=== PATIENT | female | born 2000 | race Caucasian/White ===

== ENCOUNTER 2021-06-12 08:05 | Emergency (ER) | payer MEDICAID, SELFPAY ==
[2021-06-12 08:06] VITALS: BP 154/90; PULSE 104; RESP 18; TEMP 36; O2SAT 98; BMI 47.3
--- NOTE | 2021-06-12 09:21 | EDS_ITS ---
HPI History of Present Illness Chief Complaint: Cold Sx Informant: patient Narrative Narrative: 20-year-old female arriving to the emergency department out of concerns for COVID-19. Patient states that her significant other has had Covid. She notes that yesterday she developed a cough and noticed changes in smell. Patient states today she could not smell really much at all. She denies any significant shortness of breath. No fevers. She has a history of asthma. [facility] Medical History (Updated 06/12/21 @ 09:[address] Roberto Dowell DO) Asthma Home Medications desogestrel-ethinyl estradiol [Juleber] 1 tab PO DAILY 06/12/21 [History Last Taken 06/11/21] Social History (Updated 06/12/21 @ 09:[address] Roberto Dowell DO) Smoking Status: Current every day smoker tobacco type: cigarettes substance use type: does not use ROS ROS ED Constitutional Constitutional ED: Denies chills, fever(s) or weight loss Eyes Eyes: Denies change in vision or diplopia ENT ENT ED: Reports other Details: Change in smell ; Denies ear pain, rhinorrhea or sore throat Cardiovascular Cardiovascular: Denies chest pain, orthopnea, palpitations or racing heartbeat Respiratory/Chest Respiratory/Chest: Reports cough; Denies dyspnea or orthopnea Gastrointestinal Gastrointestinal: Denies abdominal pain, diarrhea, nausea or vomiting Genitourinary Genitourinary ED: Denies dysuria, hematuria or urinary frequency Musculoskeletal Musculoskeletal: Denies arthralgias or myalgias Integumentary Denies abscess or rash Neurologic Neurologic: Denies headache(s) or weakness Psychiatric Psychiatric: Denies anxiety, depression, suicidal ideation or suicidal thoughts Endocrine Endocrinology: Denies polydipsia, polyphagia or polyuria Allergic/Immunologic Allergic/Immunologic ED: Denies mouth swelling, tongue swelling or urticaria EXAM Physical Exam Const Vital Signs: 06/12/21 08:06 Temperature 96.8 F L Temperature Source Temporal Pulse Rate 104 H Respiratory Rate 18 Blood Pressure 154/90 H Blood Pressure Mean 111 Pulse Ox 98 Oxygen Delivery Method Room Air Positive well nourished, well developed and obese General Appearance ED: well developed Nutritional Appearance: obese HEENT Reports normocephalic, head/scalp atraumatic, TM's clear and moist mucous membranes Negative for trauma Tympanic Membrane ED: Yes TM's clear Eyes PERRL and EOMs intact bilaterally Neck no lymphadenopathy, supple and no JVD Resp normal respiratory effort and clear to auscultation bilaterally Cardio regular rate, regular rhythm and no murmurs GI normal to inspection, nondistended, normoactive bowel sounds and non-tender Palpation: soft Back/Spine no CVA tenderness and normal ROM Extremity normal to inspection General Extremety ED: Negative for edema General Extremity: Negative for edema Neuro oriented x3 and CN's II-XII intact bilaterally Sensorium / Orientation: alert Motor Exam: strength 5/5 throughout Psych mental status grossly normal Mood & Affect: Negative for depressed or tearful Skin no rashes or lesions noted and no wounds MDM MDM MDM Narrative Medical decision making narrative: Patient's Covid test is positive. She is 98% on room air and is having no breathing difficulties. I believe she would qualify for monoclonal antibodies and I will put that referral in. She is to self quarantine return if worsening or concerns Discharge Plan Triage Chief Complaint: Cold Sx ED Provider: Roberto Dowell Dx/Rx/DC Orders Clinical Impression: COVID-19 Instructions: Coronavirus Disease 2019 (COVID-19): Caring for Yourself or Others Prescriptions: No Action desogestrel-ethinyl estradiol [Dmitriyeber] 0.15-0.03 mg tablet 1 tab PO DAILY RF: 0 Other Ambulatory Orders: COVID Outpatient Monoclonal Antibody Referral (Routine) Timeframe: 1 Day Facility: [facility] - Location: [facility] Ordered By: Dr. Roberto Dowell Primary Care Provider: Care Physician,No Primary Referrals: Care Physician,No Primary [Primary Care Provider] - Disposition Disposition: Home, Self Care
[2021-06-12 09:34] VITALS: BP 152/86; PULSE 80; RESP 18; O2SAT 96
== END 2021-06-12 09:35 | disposition home or self-care (01) ==
PROVIDERS: Emergency Provider Emergency Medicine
DX: U07.1 COVID-19 (principal); J45.909 Unspecified asthma, uncomplicated; F17.210 Nicotine dependence, cigarettes, uncomplicated; E66.9 Obesity, unspecified
CPT/HCPCS: 87426; 99282

== ENCOUNTER 2021-06-13 11:22 | Outpatient (CLI) | payer MEDICAID, SELFPAY ==
[2021-06-13 11:32] VITALS: BP 138/78; PULSE 101; RESP 16; TEMP 36.9; O2SAT 99; BMI 48.1
[2021-06-13] MEDS: 0.9% Saline Lock 10 ML Syringe IV (11:38)
[2021-06-13 12:35] VITALS: BP 115/64; PULSE 85; RESP 16; TEMP 36.6; O2SAT 100
[2021-06-13 13:35] VITALS: BP 109/60; PULSE 80; RESP 16; TEMP 36.7; O2SAT 99
== END 2021-06-13 13:35 | disposition home or self-care (01) ==
LOC: MS3OUT 11:22 → MS3 11:23
PROVIDERS: Referring Provider Nurse Practitioner Adult Health; Visit Provider Nurse Practitioner Adult Health
DX: Z23 Encounter for immunization (principal); U07.1 COVID-19
CPT/HCPCS: J7050; M0243; A4216; Q0244

== ENCOUNTER 2021-08-23 19:52 | Emergency (ER) | payer MEDICAID, SELFPAY ==
[2021-08-23 19:53] VITALS: BP 129/77; PULSE 98; RESP 15; TEMP 35.9; O2SAT 100; BMI 48.4
[2021-08-23 20:27] VITALS: O2SAT 97
--- NOTE | 2021-08-23 20:38 | EDS_ITS ---
HPI HPI - URI History of Present Illness Chief Complaint: Cold Sx Narrative Narrative: 20-year-old female presenting for evaluation of a cough. She states she had Covid a month ago and recovered. She now has some mild runny nose and congestion and also states she is coughing a little bit. She has no fever, chills. She has some mild fatigue. She is not having chest pain. She not short of breath. She has no nausea or vomiting. She does not have a headache. ROS ROS ED Constitutional Constitutional ED: Denies chills, fever(s) or sweats Eyes Eyes: Denies blurry vision or change in vision ENT ENT ED: Reports rhinorrhea; Denies ear pain or sore throat Cardiovascular Cardiovascular: Denies chest pain, palpitations or racing heartbeat Respiratory/Chest Respiratory/Chest: Reports cough; Denies dyspnea or sputum Gastrointestinal Gastrointestinal: Denies abdominal pain, constipation, diarrhea, nausea or vo miting Genitourinary Genitourinary ED: Denies dysuria, hematuria or urinary frequency Musculoskeletal Musculoskeletal: Denies arthralgias, myalgias or neck pain Integumentary Denies abscess, Abrasions or rash Neurologic Neurologic: Denies headache(s), paresthesias or weakness Psychiatric Psychiatric: Denies anxiety, depression, suicidal ideation or suicidal thoughts Endocrine Endocrinology: Denies polydipsia or polyuria [facility] Medical History Asthma Home Medications desogestrel-ethinyl estradiol [Juleber] 1 tab PO DAILY 06/12/21 [History Last Taken 06/11/21] promethazine-DM 5 ml PO Q6H PRN #118 ml 08/23/21 [Rx Last Taken Unknown] Allergy/AdvReac Type Severity Reaction Status Date / Time No Known Allergies Allergy Verified 08/23/21 19:53 Social History Smoking Status: Current every day smoker tobacco type: cigarettes substance use type: does not use EXAM Physical Exam Const Vital Signs: 08/23/21 19:53 08/23/21 20:27 Temperature 96.6 F L Temperature Source Temporal Pulse Rate 98 Respiratory Rate 15 Respiratory Effort Normal Non-Labored Respiratory Depth Normal Respiratory Pattern Normal Blood Pressure 129/77 H Blood Pressure Mean 94 Pulse Ox 100 Oxygen Delivery Method Room Air Room Air Positive well nourished General Appearance ED: NAD; Negative for pallor HEENT Reports normocephalic, head/scalp atraumatic and moist mucous membranes Face and Sinus: Negative for sinus tenderness Eyes PERRL and EOMs intact bilaterally Neck No no lymphadenopathy and No supple Chest Wall inspection of chest normal and palpation of chest normal Resp normal respiratory effort and clear to auscultation bilaterally Auscultation: Negative for rales, rhonchi or wheezes Cardio regular rate and regular rhythm GI normal to inspection, nondistended, normoactive bowel sounds and non-distended Auscultation: normoactive bowel sounds Palpation: soft Narrative: Deferred Extremity Negative for normal to inspection General Extremety ED: Yes edema; Negative for tenderness General Extremity: edema Neuro oriented x3 and CN's II-XII intact bilaterally Sensorium / Orientation: alert Motor Exam: strength 5/5 throughout Psych mental status grossly normal Attitude: No agitated Skin no rashes or lesions noted and no wounds General Skin Exam: Negative for jaundice or pallor MDM MDM MDM Narrative Medical decision making narrative: Patient with mild cough. Lungs are clear to auscultation. Respiratory rate 15, pulse ox 100% on room air. Patient has mild symptoms of nasal congestion and a slight cough. She is already had COVID-19 and had all treatments for it. This was about a month and a half ago. Based on patient's physical exam and vital signs I do not believe she needs another work- up or imaging. I will give her something to help her with her cough and have her follow-up with her primary care provider. Impression: 1. URI likely viral Discharge Plan Triage Chief Complaint: Cold Sx ED Provider: Jose G Abebe Dx/Rx/DC Orders Instructions: ED Viral Syndrome (Adult) Prescriptions: New promethazine-DM 6.25-15 mg/5 mL syrup 5 ml PO Q6H PRN (Reason: cough) Qty: 118 RF: 0 No Action desogestrel-ethinyl estradiol [Dmitriyeber] 0.15-0.03 mg tablet 1 tab PO DAILY RF: 0 Primary Care Provider: Adelfo Villanueva Referrals: Adelfo Villanueva MD [Primary Care Provider] - Disposition Disposition: Home, Self Care Discharge Date/Time: 08/23/21 20:45
[2021-08-23] MEDS: Benzonatate 100 MG Capsule 200 MG PO (20:43)
== END 2021-08-23 20:45 | disposition home or self-care (01) ==
PROVIDERS: Emergency Provider Student in an Organized Health Care Education/Training Program; PCP Internal Medicine
DX: J06.9 Acute upper respiratory infection, unspecified (principal); F17.210 Nicotine dependence, cigarettes, uncomplicated; Z86.16 Personal history of COVID-19; J45.909 Unspecified asthma, uncomplicated; Z79.899 Other long term (current) drug therapy
CPT/HCPCS: 99284

== ENCOUNTER 2021-10-28 11:19 | Emergency (ER) | payer MEDICAID, SELFPAY ==
[2021-10-28 11:20] VITALS: BP 146/82; PULSE 77; RESP 16; TEMP 36; O2SAT 99; BMI 45.1
--- NOTE | 2021-10-28 12:17 | EKG12_ITS ---
Test Reason : DYSRYTHMIA Blood Pressure : / mmHG Vent. Rate : 067 BPM Atrial Rate : 067 BPM P-R Int : 118 ms QRS Dur : 094 ms QT Int : 410 ms P-R-T Axes : 006 -12 002 degrees QTc Int : 433 ms Normal sinus rhythm with sinus arrhythmia Normal ECG Confirmed by KARYNA RAINES, JULIA ([id number]), script editor HAROLDO FALCON ([id number]) on 10/30/2021 8:32:50 AM Referred By: JESSEE Confirmed By:JULIA TRONCOSO MD
--- NOTE | 2021-10-28 12:17 | EDS_ITS ---
HPI HPI - Psych History of Present Illness Chief Complaint: Suicidal Narrative Narrative: Patient with past medical history of depression/anxiety, not on medication presents with her mother because of increasing suicidal ideation. She states that she would take any sort of prescription medication in an attempt to kill herself. She has never been previously hospitalized for psychiatric reasons. Over the last week she states she has been having increasing thoughts of killing herself. Her mother feels that it stems from the patient recently coming out as bisexual. Her father's mother/her grandmother helped raise her, but was unaccepting of her bisexuality. Patient denies previous attempts. She states she has a normal appetite, but endorses insomnia. She does not have full anhedonia as of yet. 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 [facility] Medical History Asthma PTSD (post-traumatic stress disorder) Home Medications NK 10/28/21 [History Last Taken Unknown] Allergy/AdvReac Type Severity Reaction Status Date / Time No Known Allergies Allergy Verified 10/28/21 11:22 Social History Smoking Status: Current every day smoker tobacco type: e-cigarettes substance use type: does not use ROS ROS ED ROS Narrative Constitutional: No fever, no chills. HEENT: No sore throat. No neck pain. No loss of vision. No rhinorrhea. Cardiovascular: No chest pain. No palpitations. No pedal edema. Respiratory: No cough, no shortness of breath. Abdominal: No abdominal pain. No nausea. No vomiting. Genitourinary: No dysuria. No hematuria. Musculoskeletal: No myalgias. No arthralgias. Neurologic: No headaches. No dizziness. No lightheadedness. Skin: No rash. No change in color. Psychiatric: Positive depression. Mild anxiety. Positive suicidal ideation and thoughts with plan of overdose on prescription medication. EXAM Physical Exam Narrative Exam Narrative: Afebrile. Vital signs noted. HEENT: Normocephalic. Atraumatic. PERRL, EOMI. Neck soft and supple. No point tenderness or step off. Cardiovascular: Regular rate and rhythm. No murmurs, rubs, or gallops appreciated. Respiratory: No tachypnea. Lungs clear to auscultation bilaterally. Gastrointestinal: Abdomen soft, nontender, with normoactive bowel sounds. No rebound or guarding. Neurological: Awake. Alert. Nonfocal, nonlateralizing. Skin: No rash. Normal color. No pallor. Musculoskeletal: No pedal edema. Full range of motion extremities. Psychiatric: Depressed affect. Tearful on examination. Const Vital Signs: 10/28/21 11:20 10/28/21 12:33 10/28/21 13:11 Temperature 96.8 F L Temperature Source Temporal Pulse Rate 77 Respiratory Rate 16 16 16 Blood Pressure 146/82 H Blood Pressure Mean 103 Pulse Ox 99 Oxygen Delivery Method Room Air MDM MDM MDM Narrative Medical decision making narrative: Medical screening labs were obtained. She will be evaluated by case management. I do feel that she requires emergent psychiatric admission. They are requesting [facility] as mother states that she is familiar with this because one of the patient's siblings had to be taken there. Her medical screening labs are grossly unremarkable except hemoglobin slightly elevated at 16.4. Electrolyte panel shows chloride slightly elevated at 109. Total bili is elevated at 1.7 which I think is nonspecific. Urine for drugs of abuse is negative. test is negative. Covid swab is negative. Ethyl alcohol level is negative. Currently, she is being evaluated by the case management team. Of note, patient became more agitated and anxious. She received Ativan 1 mg orally. I do feel that she requires 72-hour psychiatric hold for her suicidal ideation with plan. She will be signed out to the oncoming physician, Dr. Maninder Fleming, to make final disposition on this patient requiring transfer to a psychiatric facility. She is in stable condition. Lab Data Attestation: I reviewed the patient's lab results. Labs: Laboratory Results - last 24 hr 10/28/21 10/28/21 10/28/21 12:38 13:00 13:00 WBC 10.4 RBC 5.62 H Hgb 16.4 H Hct 45.4 MCV 80.8 L MCH 29.2 MCHC 36.1 H RDW Std Deviation 37.9 RDW Coeff of Halina 13.0 Plt Count 345 MPV 9.4 Immature Gran % (Auto) 0.600 Neut % (Auto) 61.1 Lymph % (Auto) 30.1 Hamblen % (Auto) 5.9 Eos % (Auto) 1.6 Baso % (Auto) 0.7 Absolute Neuts (auto) 6.4 Absolute Lymphs (auto) 3.12 Nucleated RBC % 0 Sodium 138 Potassium 3.9 Chloride 109 H Carbon Dioxide 26.0 Anion Gap 3 L BUN 7 Creatinine 0.81 Estim Creat Clear Calc 101.12 Est GFR (MDRD) Af Amer 112 Est GFR (MDRD) Non-Af 93 BUN/Creatinine Ratio 8.6 L Glucose 94 Calcium 9.2 Total Bilirubin 1.70 H AST 16 ALT 38 Alkaline Phosphatase 64 Total Protein 7.6 Albumin 3.9 Globulin 3.7 Albumin/Globulin Ratio 1.1 Serum , Qual Urine Opiates Screen NEGATIVE Urine Methadone Screen NEGATIVE Ur Barbiturates Screen NEGATIVE Ur Phencyclidine Scrn NEGATIVE Ur Amphetamines Screen NEGATIVE U Methamphetamin-MDMA NEGATIVE U Benzodiazepines Scrn NEGATIVE Urine Cocaine Screen NEGATIVE U Cannabinoids Screen NEGATIVE Ur Drug Screen Comment Ethyl Alcohol 10/28/21 10/28/21 13:00 13:00 WBC RBC Hgb Hct MCV MCH MCHC RDW Std Deviation RDW Coeff of Halina Plt Count MPV Immature Gran % (Auto) Neut % (Auto) Lymph % (Auto) Hamblen % (Auto) Eos % (Auto) Baso % (Auto) Absolute Neuts (auto) Absolute Lymphs (auto) Nucleated RBC % Sodium Potassium Chloride Carbon Dioxide Anion Gap BUN Creatinine Estim Creat Clear Calc Est GFR (MDRD) Af Amer Est GFR (MDRD) Non-Af BUN/Creatinine Ratio Glucose Calcium Total Bilirubin AST ALT Alkaline Phosphatase Total Protein Albumin Globulin Albumin/Globulin Ratio Serum , Qual NEGATIVE Urine Opiates Screen Urine Methadone Screen Ur Barbiturates Screen Ur Phencyclidine Scrn Ur Amphetamines Screen U Methamphetamin-MDMA U Benzodiazepines Scrn Urine Cocaine Screen U Cannabinoids Screen Ur Drug Screen Comment Ethyl Alcohol < 3.0 Discharge Plan Triage Chief Complaint: Suicidal ED Provider: Keo Ramos Dx/Rx/DC Orders Clinical Impression: Depression with suicidal ideation, Anxiety Prescriptions: No Action NK RF: 0 Primary Care Provider: Care Physician,No Primary Referrals: Care Physician,No Primary [Primary Care Provider] - Disposition Disposition: Psychiatric Hospital or Unit
[2021-10-28 12:33] VITALS: RESP 16
[2021-10-28 13:04] LABS: Amphetamine Urine VISTA NEGATIVE (<1000 ng/mL); Barbiturate Urine VISTA NEGATIVE (< 200 ng/mL); Benzodiazepine Urine VISTA NEGATIVE (< 200 ng/mL); Cocaine Urine VISTA NEGATIVE (< 300 ng/mL); Ecstacy Urine VISTA NEGATIVE (< 500 ng/mL); Methadone Urine VISTA NEGATIVE (< 300 ng/mL); PCP Urine VISTA NEGATIVE (< 25 ng/mL); THC Urine VISTA NEGATIVE (< 50 ng/mL); Vista UDS pH Range 6
[2021-10-28 13:11] VITALS: RESP 16
[2021-10-28 13:12] LABS: Absolute Lymphocyte Count 3.12 X10^3/uL (0.83-4.51); Absolute Neutrophil Count 6.4 X10^3/uL (2.0-7.7); Basophil# 0.07 X10^3/uL; Basophil% 0.7 % (0-1); Eosinophil# 0.17 X10^3/uL; Eosinophils% 1.6 % (0-5); Hematocrit 45.4 % (37-47); Hemoglobin 16.4 g/dL (12.0-15.0); Lymphocyte # 3.12 X10^3/ul (0.83-4.51); Lymphocyte % 30.1 % (19-41); Mean Corp Hgb Conc 36.1 g/dL (32-36); Mean Corpuscular Hgb 29.2 pg (27.0-32.0); Mean Corpuscular Volume 80.8 fL (81-99); Mean Platelet Vol. 9.4 fl (6.2-12.0); Monocyte# 0.61 X10^3/uL; Monocyte% 5.9 % (0-10); NRBC Flagged by Analyzer 0 % (0-5); Neutrophil # 6.35 X10^3/uL (2.7-7.7); Neutrophil % 61.1 % (47-70); Platelet Count 345 K/mm3 (150-450); RBC Distribution Width SD 37.9 fl (35.1-43.9); Red Blood Count 5.62 M/mm3 (4.2-5.4); White Blood Count 10.4 K/mm3 (4.4-11.0)
[2021-10-28 13:28] LABS: ALB/GLOB Ratio 1.1 RATIO (0.9-2.4); AST(SGOT) 16 U/L (15-37); Alanine Aminotransfer ALT/SGPT 38 U/L (13-56); Albumin, Serum 3.9 g/dL (3.2-5.0); Alkaline Phosphatase 64 U/L (45-117); Anion Gap 3 (5-15); BUN 7 mg/dL (7-18); BUN/Creat Ratio 8.6 RATIO (10-20); Calcium,Total 9.2 mg/dL (8.5-10.1); Chloride 109 mmol/L (98-107); Creatinine, Serum 0.81 mg/dL (0.55-1.02); EST Glomerular Filtration Rate 93 mL/min (>60); Est Glom Filt Rate - Afr Amer 112 mL/min (>60); Estimated Creatinine Clearance 101.12 ml/min; Globulin 3.7 g/dL (2.2-4.2); Glucose 94 mg/dL (74-106); Potassium 3.9 mmol/L (3.5-5.1); Protein, Total 7.6 g/dL (6.4-8.2); Sodium Level 138 mmol/L (136-145)
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
[2021-10-28 13:39] LABS: Internal QC Validated? YES +Cl - CLEAR BKGD; Pregnancy, Serum, hCG Quali. NEGATIVE Negative
[2021-10-28 13:41] LABS: Alcohol, Blood (Medical)-Serum < 3.0 mg/dL
--- NOTE | 2021-10-28 13:45 | CM.ED ---
Social Work Telephone call to [facility]. They do have open adult beds. Clinical information faxed. Will continue to follow. Len LUCAS, JT
[2021-10-28] MEDS: LORazepam 1 MG Tablet PO (15:10)
[2021-10-28 15:12] VITALS: BP 148/82; PULSE 73; RESP 16; O2SAT 98
--- NOTE | 2021-10-28 15:13 | CM.ED ---
Social Work Telephone call to [facility], charge nurse. Referral is getting ready to be reviewed. Patient updated. Will continue to follow. Len LUCAS, JT
--- NOTE | 2021-10-28 16:12 | CM.ED ---
[id number]. Nurse to call report to [phone]. Medical team, patient, and patient mother updated on above information. Trailer Truck Driver to set up transportation. PLAN: [facility]. Len LUCAS, JT
--- NOTE | 2021-10-28 16:24 | NURSING ---
SPOKE WITH PHYSICIANS GAVE ETA OF 2 HOURS
[2021-10-28 17:13] VITALS: RESP 14
[2021-10-28 18:04] VITALS: BP 148/82; RESP 14; O2SAT 98
== END 2021-10-28 19:02 ==
PROVIDERS: Emergency Provider Emergency Medicine; Visit Provider Emergency Medicine
DX: F32.A Depression, unspecified (principal); R45.851 Suicidal ideations; Z20.822 Contact with and (suspected) exposure to COVID-19; R45.1 Restlessness and agitation; F41.9 Anxiety disorder, unspecified; J45.909 Unspecified asthma, uncomplicated; F17.290 Nicotine dependence, other tobacco product, uncomplicated
CPT/HCPCS: 36415; 80053; 80307; 82077; 84703; 85025; 87426; 93005; 99285

== ENCOUNTER 2021-12-07 03:23 | Emergency (ER) | payer MEDICAID, SELFPAY ==
[2021-12-07 03:24] VITALS: BP 170/114; PULSE 95; RESP 20; TEMP 36.4; O2SAT 99; BMI 48.1
--- NOTE | 2021-12-07 03:43 | EDS_ITS ---
HPI HPI - GI History of Present Illness Chief Complaint: Abd Pain Informant: patient Abdominal Pain/Flank Pain Onset: Hours (1) Context: Sudden Onset (Woke up with pain) Timing: Continuous and Waxes and wanes Quality: Aching Location: RUQ (Without radiation/migration) Current Severity: 7/10 Maximum Severity: Severe Worsened by: Food (In the past) Relieved by: Nothing Nausea/Vomiting/Emesis GI Symptom: Positive for Nausea; Negative for Vomiting Onset: Today Diarrhea/Melena/Hematochezia GI Symptom: Negative for Diarrhea, Melena and Hematochezia Associated Symptoms Associated Symptoms: Negative for Dysuria, Frequency and Hematuria Narrative Narrative: Patient wakes up with right upper quadrant pain, the last thing she ate was deli sandwich and potato chips last night for dinner. She presents here around 3:30 AM with this pain. She states last time she had this she was at the hospital in [place] and had an ultrasound of her gallbladder, they told her there was sludge and that she may need to have her gallbladder out but she has had no prior abdominal surgeries to this point. She denies any fevers, chills, jaundice, itching, blood in her stool or melena, urinary symptoms, or back pain. Prior similar symptoms: Yes PFSH PFSH Medical History Asthma Depression GERD (gastroesophageal reflux disease) PTSD (post-traumatic stress disorder) Smoker Home Medications bupropion HCl 150 mg PO DAILY 12/07/21 [History Last Taken Unknown] Allergy/AdvReac Type Severity Reaction Status Date / Time No Known Allergies Allergy Verified 10/28/21 11:22 Surgical History (Updated 12/07/21 @ 03:31 by Gale Bell) Hx of tonsillectomy Social History Smoking Status: Current every day smoker tobacco type: e-cigarettes substance use type: does not use ROS ROS ED Constitutional Constitutional ED: Denies chills or fever(s) Eyes Eyes: Denies change in vision or diplopia ENT ENT ED: Denies rhinorrhea or sore throat Cardiovascular Cardiovascular: Denies chest pain or palpitations Respiratory/Chest Respiratory/Chest: Denies cough or dyspnea Gastrointestinal Gastrointestinal: Reports as per HPI, abdominal pain and nausea; Denies diarrhea or vomiting Genitourinary Genitourinary ED: Denies dysuria or hematuria Musculoskeletal Musculoskeletal: Denies back pain or neck pain Integumentary Denies abscess or rash Neurologic Neurologic: Denies headache(s), paresthesias or weakness Psychiatric Psychiatric: Denies anxiety or suicidal thoughts EXAM Physical Exam Const Vital Signs: 12/07/21 03:24 Temperature 97.6 F L Temperature Source Oral Pulse Rate 95 Respiratory Rate 20 H Blood Pressure 170/114 H Blood Pressure Mean 132 Pulse Ox 99 Oxygen Delivery Method Room Air Positive well nourished and well developed General Appearance ED: well developed and NAD Nutritional Appearance: morbidly obese HEENT Reports moist mucous membranes normocephalic and atraumatic Eyes PERRL and EOMs intact bilaterally Neck full ROM and supple Resp normal respiratory effort and clear to auscultation bilaterally Cardio regular rate, regular rhythm and no murmurs GI non-distended GI Narrative: Right upper quadrant tenderness, otherwise benign abdomen nontender throughout the other areas. No guarding or rebound tenderness negative Hodgson. Auscultation: normoactive bowel sounds Palpation: soft Back/Spine no CVA tenderness General Back: other FROM Extremity normal to inspection General Extremety ED: Negative for edema, pulses abnormal or tenderness General Extremity: Negative for edema or pulses abnormal Neuro oriented x3, CN's II-XII intact bilaterally and no sensory deficits noted Sensorium / Orientation: awake and alert Motor Exam: strength 5/5 throughout Skin no rashes or lesions noted and no wounds MDM MDM MDM Narrative Medical decision making narrative: Patient presents when ultrasound/radiology screening ultrasound of her gallbladder. She is tender over it, the gallbladder wall is within normal limits at 0.3 cm, there are no echoing stones seen or pericholecystic fluid. Labs were obtained, she was given IV Toradol and Zofran for her symptoms. She has a white blood count of her 14, and since ultrasound is not available, she was sent for an IV contrasted CT scan. It is normal showing no signs of acute cholecystitis or an alternative diagnosis here. On reevaluation, she is feeling much better. I reexamined her, she is very mildly tender in the right upper quadrant negative Hodgson sign, otherwise benign. Although she does have a leukocytosis, I do not think she has acute cholecystitis, and I think she can follow-up as an outpatient. She may need a HIDA scan since it appears that she does not have any stones, I do not think she needs to be admitted for that. She states that she did have an official ultrasound when she was at [place] and they told her she had no stones as well. I will give her PCP and surgery to follow-up with for this. We also talked about the possibility of functional GI etiologies that are not gallbladder- related which is also in the differential. Lab Data Attestation: I reviewed the patient's lab results. Labs: Laboratory Results - last 24 hr 12/07/21 12/07/21 12/07/21 03:22 03:22 03:22 WBC 14.2 H RBC 5.89 H Hgb 16.5 H Hct 49.4 H MCV 83.9 MCH 28.0 MCHC 33.4 RDW Std Deviation 41.2 RDW Coeff of Halina 13.4 Plt Count 372 MPV 9.1 Immature Gran % (Auto) 0.800 Neut % (Auto) 60.2 Lymph % (Auto) 30.8 Routt % (Auto) 4.9 Eos % (Auto) 2.5 Baso % (Auto) 0.8 Absolute Neuts (auto) 8.5 H Absolute Lymphs (auto) 4.36 Nucleated RBC % 0 Sodium 139 Potassium 3.9 Chloride 106 Carbon Dioxide 25.0 Anion Gap 8 BUN 13 Creatinine 1.04 H Estim Creat Clear Calc 78.76 Est GFR (MDRD) Af Amer 84 Est GFR (MDRD) Non-Af 70 BUN/Creatinine Ratio 12.5 Glucose 119 H Calcium 8.8 Total Bilirubin 1.20 H AST 14 L ALT 32 Alkaline Phosphatase 70 Total Protein 8.0 Albumin 4.1 Globulin 3.9 Albumin/Globulin Ratio 1.1 Lipase 79 Serum , Qual NEGATIVE Radiography Diagnostic Testing: Clinical Impression(s) from Imaging Studies Abdomen/Pelvis CT 12/07/21 04:02 IMPRESSION: No acute findings. Electronically Signed: Uriel Moctezuma MD at 5:09 EDT , Discharge Plan Triage Chief Complaint: Abd Pain ED Provider: Vasiliy Gallagher Dx/Rx/DC Orders Clinical Impression: Right upper quadrant abdominal pain, Leukocytosis Instructions: Abdominal Pain Prescriptions: No Action bupropion HCl 150 mg tablet extended release 24 hr 150 mg PO DAILY RF: 0 Primary Care Provider: Care Physician,No Primary Referrals: Raeann Rodrigues MD [STAFF PHYSICIAN] - (for primary care) Valerie Du MD [STAFF PHYSICIAN] - (call for appt) Care Physician,No Primary [Primary Care Provider] - Activity Restrictions/Additional Instructions: Eat a low-fat diet. Fatty foods cause the gallbladder to release bile to help d igest the fats. This can commonly cause pain with gallbladder problems. Read food labels to be sure the foods you are choosing are low in fat. Limit the use of high-fat meats, dairy products, animal fats, and vegetable oils. Disposition Disposition: Home, Self Care
[2021-12-07] MEDS: Ketorolac 30 MG/ML Syringe IV (03:47)
[2021-12-07] MEDS: Ondansetron 4 MG/2 ML Vial IV (03:47)
[2021-12-07 03:57] LABS: Absolute Lymphocyte Count 4.36 X10^3/uL (0.83-4.51); Absolute Neutrophil Count 8.5 X10^3/uL (2.0-7.7); Basophil# 0.11 X10^3/uL; Basophil% 0.8 % (0-1); Eosinophil# 0.36 X10^3/uL; Eosinophils% 2.5 % (0-5); Hematocrit 49.4 % (37-47); Hemoglobin 16.5 g/dL (12.0-15.0); Lymphocyte # 4.36 X10^3/ul (0.83-4.51); Lymphocyte % 30.8 % (19-41); Mean Corp Hgb Conc 33.4 g/dL (32-36); Mean Corpuscular Volume 83.9 fL (81-99); Mean Platelet Vol. 9.1 fl (6.2-12.0); Monocyte# 0.69 X10^3/uL; Monocyte% 4.9 % (0-10); NRBC Flagged by Analyzer 0 % (0-5); Neutrophil # 8.52 X10^3/uL (2.7-7.7); Neutrophil % 60.2 % (47-70); Platelet Count 372 K/mm3 (150-450); RBC Distribution Width CV 13.4 % (11.6-14.6); RBC Distribution Width SD 41.2 fl (35.1-43.9); Red Blood Count 5.89 M/mm3 (4.2-5.4); White Blood Count 14.2 K/mm3 (4.4-11.0)
--- NOTE | 2021-12-07 04:02 | CT_ITS ---
STUDY: CT ABDOMEN AND PELVIS WITH CONTRAST REASON FOR EXAM: Female, 21 years old. RUQ pain RADIATION DOSAGE (If Supplied By Facility): CTDIvol = ( 22.04 ) mGy, DLP = ( 1381.75 ) mGycm TECHNIQUE: Transaxial images were obtained from the dome of the diaphragm to the symphysis pubis without oral contrast. IV 100mL Isovue-300 was administered. Sagittal and coronal images were reconstructed. Individualized dose optimization techniques were used for this CT. COMPARISON: None. FINDINGS: The visualized lung bases are unremarkable. The visualized portions of the heart are within normal limits. Normal liver. Normal gallbladder and extrahepatic biliary system. Normal spleen. Normal pancreas. Normal bilateral adrenal glands. Normal right kidney. Normal left kidney. Normal visualized stomach. Normal small intestine. Normal colon. The appendix is visualized and appears normal. Normal abdominal aorta. Normal inferior vena cava. Normal retroperitoneum. Normal urinary bladder. Normal abdominal wall. Normal osseous structures. CT/Abdomen/Pelvis W IV Cont ONLY IMPRESSION: No acute findings. Electronically Signed: Uriel Moctezuma MD at 5:09 EDT ,
[2021-12-07 04:05] LABS: Internal QC Validated? YES +Cl - CLEAR BKGD; Pregnancy, Serum, hCG Quali. NEGATIVE Negative
[2021-12-07 04:13] LABS: ALB/GLOB Ratio 1.1 RATIO (0.9-2.4); AST(SGOT) 14 U/L (15-37); Alanine Aminotransfer ALT/SGPT 32 U/L (13-56); Albumin, Serum 4.1 g/dL (3.2-5.0); Alkaline Phosphatase 70 U/L (45-117); Anion Gap 8 (5-15); BUN 13 mg/dL (7-18); BUN/Creat Ratio 12.5 RATIO (10-20); Calcium,Total 8.8 mg/dL (8.5-10.1); Chloride 106 mmol/L (98-107); Creatinine, Serum 1.04 mg/dL (0.55-1.02); EST Glomerular Filtration Rate 70 mL/min (>60); Est Glom Filt Rate - Afr Amer 84 mL/min (>60); Estimated Creatinine Clearance 78.76 ml/min; Globulin 3.9 g/dL (2.2-4.2); Glucose 119 mg/dL (74-106); Lipase 79 U/L (73-393); Potassium 3.9 mmol/L (3.5-5.1); Sodium Level 139 mmol/L (136-145)
[2021-12-07 05:38] VITALS: BP 154/87; PULSE 78; RESP 16; O2SAT 96
== END 2021-12-07 05:39 | disposition home or self-care (01) ==
PROVIDERS: Emergency Provider Emergency Medicine; Visit Provider Emergency Medicine
DX: R10.11 Right upper quadrant pain (principal); R11.2 Nausea with vomiting, unspecified; D72.829 Elevated white blood cell count, unspecified; J45.909 Unspecified asthma, uncomplicated; K21.9 Gastro-esophageal reflux disease without esophagitis; F17.290 Nicotine dependence, other tobacco product, uncomplicated
CPT/HCPCS: 74177; 80053; 83690; 84703; 85025; 96361; 96374; 96375; 99283; J7040; Q9967; A4216; J2405